=== PATIENT | female | born 1995 | race African-American/Black ===

== ENCOUNTER 2018-05-15 16:29 | Emergency (ER) | payer SELFPAY | END 2018-05-15 17:33 | disposition home or self-care (01) | LOC: ERS 16:29 | DX: J02.9 Acute pharyngitis, unspecified (principal) | CPT/HCPCS: 87081; 87430; 99283 ==

== ENCOUNTER 2018-11-19 01:13 | Emergency (ER) | payer SELFPAY ==
[2018-11-19 02:40] LABS: Pregnancy Test - Urine (BHCG) Negative (Negative); Pregu Control Background? CLEAR/WHITE (CLR/WHITE); Pregu Control Bar Appear? YES (CONTROL BAR)
[2018-11-19 02:41] LABS: Bilirubin Negative (Negative); Blood, Urine Large (Negative); Clarity CLOUDY (Clear); Glucose, Urine (Dipstick) Negative (Negative); Leukocyte Small (Negative); Nitrite Negative (Negative); Protein, Urine (Dipstick) Trace mg/dL (Neg-Trace); Specific Gravity 1.026 (1.002-1.036); Specific Gravity, Urine 1.026 (1.002-1.036); Urobilinogen 0.2 mg/dL (0.2-1.0); pH, Urine 6.5 (5.0-9.0)
[2018-11-19 02:44] LABS: Bacteria/HPF Rare-Few HPF (None Seen); Hyaline Casts/LPF 0-3 HYALINE CAST LPF (0-3 Hyaline); Yeast-AUWi Flag 17.1 (0-25.0)
== END 2018-11-19 03:00 | disposition home or self-care (01) ==
LOC: ERS 01:13
DX: R10.2 Pelvic and perineal pain (principal)
CPT/HCPCS: 81003; 81015; 81025; 87086; 99284

== ENCOUNTER 2019-06-08 22:25 | Emergency (ER) | payer SELFPAY ==
[2019-06-08] MEDS ORDERED: Ketorolac Tromethamine 30 MG/ML VIAL ONE (22:39)
[2019-06-08] MEDS ORDERED: Ibuprofen 800 MG TAB ONE (22:45)
[2019-06-08] MEDS ORDERED: Acetaminophen 325 MG TAB ONE (22:45)
== END 2019-06-08 22:50 | disposition home or self-care (01) ==
LOC: ERS 22:25
DX: M54.5 Low back pain (principal)
CPT/HCPCS: 99283; J1885

== ENCOUNTER 2020-06-12 10:06 | Emergency (ER) | payer SELFPAY ==
[2020-06-12] MEDS ORDERED: Ketorolac Tromethamine 30 MG/ML VIAL ONE (10:20)
[2020-06-12 10:58] LABS: #Basophils 0.1 thou/uL (0.0-0.2); #Eosinphils 0.1 thou/uL (0.0-0.7); #Lymphocytes 2.8 thou/uL (1.20-3.40); #Monocytes 0.6 thou/uL (0.11-0.59); #Neutrophils 7.1 thou/uL (1.40-6.50); %Basophils 0.8 % (0.0-1.0); %Eosinophils 0.9 % (0.0-10.0); %Lymphocytes 26.3 % (21.0-51.0); %Monocytes 5.7 % (0.0-10.0); %Neutrophils 66.3 % (42.0-75.0); Hemoglobin 9.6 g/dL (12.0-16.0); Mean Corpuscular HGB CONC 30.5 g/dL (32.0-36.0); Mean Corpuscular Hemoglobin 21.5 pg (27.0-31.0); Mean Corpuscular Volume 70.4 fL (78.0-98.0); Mean Platelet Volume 11.6 fL (7.4-10.4); Platelet Count 322 thou/uL (130-400); RBC Distribution Width 18.8 % (11.5-14.5); Red Blood Cell (RBC) Count 4.46 mill/uL (4.20-5.40); White Blood Cell (WBC) Count 10.7 thou/uL (4.8-10.8)
[2020-06-12 11:12] LABS: Bilirubin Negative (Negative); Blood, Urine Large (Negative); Glucose, Urine (Dipstick) Negative (Negative); Ketone, Urine Negative (Negative); Leukocyte Negative (Negative); Nitrite Negative (Negative); Protein, Urine (Dipstick) Trace mg/dL (Neg-Trace); Urobilinogen 0.2 mg/dL (Less than 2); pH, Urine 5.5 (5.0-9.0)
[2020-06-12 11:13] LABS: BHCG - Serum Negative (NEGATIVE); Pregs Control Background? CLEAR/WHITE (CLR/WHITE); Pregs Control Bar Appear? YES (CONTROL BAR)
[2020-06-12 11:22] LABS: ALT (SGPT) 13 U/L (8-55); AST (SGOT) 14 U/L (5-34); Albumin 4.1 g/dL (3.5-5.0); Alkaline Phosphatase 90 U/L (40-110); Anion Gap 14 mmol/L (10-20); BUN (Urea Nitrogen) 10 mg/dL (7.0-18.7); Bilirubin, Total 0.2 mg/dL (0.2-1.2); Calc. Creatinine Clearance 0 mL/min (70-130); Calcium 9.2 mg/dL (7.8-10.44); Carbon Dioxide 21 mmol/L (22-29); Chloride 106 mmol/L (98-107); Globulin 3.8 g/dL (2.4-3.5); Glucose 128 mg/dL (70-105); Potassium 3.7 mmol/L (3.5-5.1); Protein, Total 7.9 g/dL (6.0-8.3); Sodium 137 mmol/L (136-145)
[2020-06-12 11:27] LABS: Clarity Clear (Clear)
[2020-06-12 11:28] LABS: Specific Gravity, Urine 1.032 (1.002-1.036)
[2020-06-12 11:30] LABS: MDiff Complete? YES; Microcytosis MODERATE=15-30 cells (100X) (0-5/hpf); Polychromasia SLIGHT = 2-3 cells (100X) (0-2/hpf)
[2020-06-12 11:36] LABS: Bacteria/HPF Rare-Few HPF (None Seen); Squamous Epithelial 21-50 HPF (0-3); WBC/HPF 0-3 HPF (0-3)
== END 2020-06-12 12:15 | disposition home or self-care (01) ==
LOC: ERS 10:06
DX: R10.30 Lower abdominal pain, unspecified (principal); D64.9 Anemia, unspecified
CPT/HCPCS: 80053; 81003; 81015; 84703; 85025; 87086; 96374; J1885

== ENCOUNTER 2020-06-13 03:51 | Emergency (ER) | payer SELFPAY ==
[2020-06-13] MEDS ORDERED: Ketorolac Tromethamine 30 MG/ML VIAL ONE (05:17)
[2020-06-13] MEDS ORDERED: Fentanyl 100 MCG/2 ML VIAL ONE (05:17)
[2020-06-13 05:26] LABS: ALT (SGPT) 9 U/L (8-55); AST (SGOT) 10 U/L (5-34); Albumin 3.5 g/dL (3.5-5.0); Alkaline Phosphatase 75 U/L (40-110); Anion Gap 12 mmol/L (10-20); BUN (Urea Nitrogen) 10 mg/dL (7.0-18.7); Bilirubin, Total 0.2 mg/dL (0.2-1.2); Calc. Creatinine Clearance 0 mL/min (70-130); Calcium 8.5 mg/dL (7.8-10.44); Carbon Dioxide 21 mmol/L (22-29); Chloride 108 mmol/L (98-107); Globulin 3.2 g/dL (2.4-3.5); Glucose 136 mg/dL (70-105); Potassium 3.6 mmol/L (3.5-5.1); Protein, Total 6.7 g/dL (6.0-8.3); Sodium 137 mmol/L (136-145)
[2020-06-13 05:35] LABS: #Eosinphils 0.1 thou/uL (0.0-0.7); #Lymphocytes 2.9 thou/uL (1.20-3.40); #Monocytes 0.7 thou/uL (0.11-0.59); #Neutrophils 6.6 thou/uL (1.40-6.50); %Basophils 0.4 % (0.0-1.0); %Eosinophils 1.1 % (0.0-10.0); %Monocytes 6.6 % (0.0-10.0); Hemoglobin 8.4 g/dL (12.0-16.0); Mean Corpuscular HGB CONC 30.5 g/dL (32.0-36.0); Mean Corpuscular Hemoglobin 21.5 pg (27.0-31.0); Mean Corpuscular Volume 70.5 fL (78.0-98.0); Mean Platelet Volume 11.5 fL (7.4-10.4); Platelet Count 253 thou/uL (130-400); RBC Distribution Width 18.6 % (11.5-14.5); White Blood Cell (WBC) Count 10.4 thou/uL (4.8-10.8)
--- NOTE | 2020-06-13 08:33 | CT ---
CT OF THE ABDOMEN AND PELVIS WITH IV CONTRAST: INDICATION: A 25-year-old female with recurrent abdominal pain with worsening cramping. FINDINGS: There is prominent low-density material filling the endometrial canal which is nonspecific. There ar e hypodense lesions involving both adnexa, incompletely characterized. There is mild free fluid in t he pelvis. There is a normal appendix in the right lower quadrant. Lung bases are clear. The liver, gallbladder, pancreas, adrenal glands, spleen, and kidneys revealed no acute abnormality. No drainable fluid collection is evident. The large and small bowel appear within normal limits. The stomach and visualized duodenum appear wi thin normal limits. No definite acute osseous abnormality is evident. IMPRESSION: 1. Low-density material seen filling the endometrial canal is nonspecific. Hypodense lesions involv ing both adnexa are nonspecific. Would recommend further evaluation with a pelvic ultrasound (transa bdominal and transvaginal examination) for further evaluation. 2. Mild free fluid in the pelvis. 3. No additional abnormality. POS: BH
--- NOTE | 2020-06-13 09:19 | ULT ---
TRANSABDOMINAL PELVIC EVALUATION: INDICATION: History of abdominal pain. TECHNIQUE: Falk scale, color Doppler, with spectral Doppler images were obtained from a transabdominal evaluatio n only. The patient refused the transvaginal exam. FINDINGS: The uterus measures 11.0 x 4.5 x 5.8 cm. The left ovary measures 3.2 x 4.3 x 2.8 cm. The right ovary measures 2.7 x 4.2 x 2.1 cm. There is normal flow to both ovaries. Endometrial stripe is markedly thickened within the endometrium measuring 3.3 cm with increased diffu se echogenicity. Mild free fluid is seen within the pelvis. IMPRESSION: 1. Markedly thickened endometrial stripe. Would recommend correlation with patient's stat us and phase of menstruation. Findings may reflect sequelae of endometrial hyperplasia or polyposis. Followup with [facility] may be helpful. 2. Mild free fluid in the pelvis. POS: BH
[2020-06-13] MEDS ORDERED: Iopamidol-370 76% 500 ML 1 ML ONE (10:27)
== END 2020-06-13 07:38 | disposition home or self-care (01) ==
LOC: ERS 03:51
DX: N93.8 Other specified abnormal uterine and vaginal bleeding (principal); D64.9 Anemia, unspecified; Z79.899 Other long term (current) drug therapy
CPT/HCPCS: 36415; 74177; 76856; 80053; 85025; 93976; 96374; J1885; J3010; Q9967

== ENCOUNTER 2020-08-17 21:20 | Emergency (ER) | payer SELFPAY ==
[2020-08-17] MEDS ORDERED: Ketorolac Tromethamine 30 MG/ML VIAL ONE (21:45)
== END 2020-08-17 21:57 | disposition home or self-care (01) ==
LOC: ERS 21:20
DX: H60.92 Unspecified otitis externa, left ear (principal); Z79.899 Other long term (current) drug therapy; D64.9 Anemia, unspecified
CPT/HCPCS: 96372; 99282; J1885

== ENCOUNTER 2021-10-20 17:45 | Emergency (ER) | payer SELFPAY | END 2021-10-20 18:54 | disposition home or self-care (01) | LOC: ERS 17:45 | DX: H66.93 Otitis media, unspecified, bilateral (principal); D64.9 Anemia, unspecified | CPT/HCPCS: 99282 ==